=== PATIENT | female | born 1995 | race Two or more races ===

== ENCOUNTER 2025-03-06 19:41 | Emergency (ER) | payer MEDICAID, SELFPAY ==
[2025-03-06 19:41] VITALS: BMI 32.9
--- NOTE | 2025-03-06 19:44 | EKG_ITS ---
[facility] Test Date: 2025-03-06 Pat Name: SCOT PLATT Department: Room: - Gender: Female Welfare Adviser: : 1995 Requested By: Vijay Lentz Order Number: [id number] Reading MD: Vijay Lentz Measurements Intervals [place] Rate: 92 P: 41 MS: 151 QRS: 46 QRSD: 82 T: 11 QT: 328 QTc: 406 Interpretive Statements SINUS RHYTHM WITH SINUS ARRHYTHMIA Compared to ECG 06/25/2022 13:04:12 No significant changes /store/S0/[id number].pdf
[2025-03-06 20:42] VITALS: BP 111/78; PULSE 91; RESP 18; TEMP 36.9; O2SAT 97
--- NOTE | 2025-03-06 20:57 | PD.EDCHEST ---
ED Chest Pain RME/HPI General Chief Complaint: Chest Pain Stated Complaint: LEFT UPPER CHEST PAIN Time Seen by Provider: 03/06/25 20:57 Arrival date/time: 03/06/25 19:41 29F with history of anxiety/depression presents to ED with 2 days of L-sided chest/shoulder pain that radiates up to neck. Pain is worse with ROM. Patient denies URI symptoms and fall/trauma. Patient admits she's had increased stressors at home recently, including someone who she blocked and is trying to get back into her life. Limitations: no limitations Related Data Previous Rx's ?Medication ?Instructions ?Recorded amoxicillin 875 mg-potassium 1 tab PO BID #20 tabs 05/24/21 clavulanate 125 mg tablet (Augmentin) ibuprofen 600 mg tablet (IBU) 600 mg PO Q8H PRN pain #30 tabs 05/24/21 pantoprazole 40 mg tablet,delayed 40 mg PO QDAY #30 tabs 06/25/22 release (Protonix) Allergies Allergy/AdvReac Type Severity Reaction Status Date / Time No Known Allergies Allergy Verified 06/25/22 12:28 Review of Systems Review of Systems Systems Reviewed: All systems reviewed, normal except as documented Constitutional Constitutional: Reports system reviewed and no additional complaints, except as documented, Denies fever(s) and Denies headache(s) ENT Ears, Nose, Mouth, and Throat: Denies disequilibrium and Denies headache(s) Cardiovascular Cardiovascular: Reports system reviewed and no additional complaints, except as documented, Reports as per HPI, Reports chest pain and Denies dyspnea Respiratory Respiratory: Reports system reviewed and no additional complaints, except as documented, Denies cough and Denies dyspnea Gastrointestinal Gastrointestinal: Reports system reviewed and no additional complaints, except as documented, Denies abdominal pain, Denies nausea and Denies vomiting Musculoskeletal Musculoskeletal: Reports as per HPI and Reports arthralgias Neurologic Neurologic: Reports system reviewed and no additional complaints, except as documented, Denies confusion, Denies disequilibrium and Denies headache(s) Psychiatric Psychiatric: Denies confusion Past Medical History Past Medical History CARDIAC: Negative Congestive Heart Failure RESPIRATORY: Negative Chronic Obstructive Pulmonary Disease (COPD) GENITOURINARY: Negative Renal Disease ENDOCRINE: Negative Diabetes Mellitus Type 1 or Diabetes Mellitus Type 2 Social History SMOKING STATUS: Never smoker ED Exam General Limitations: Present no limitations General appearance: Present alert, in no apparent distress and anxious Head Head exam: Present atraumatic Eye Eye exam: Present normal appearance, PERRL and EOMI ENT ENT exam: Present normal exam, normal oropharynx and mucous membranes moist Neck Neck exam: Present normal inspection, full ROM and trachea midline Chest Chest inspection: Present normal inspection and symmetric chest wall rise Respiratory Respiratory exam: Present normal lung sounds bilaterally Cardiovascular Cardiovascular exam: Present regular rate, normal rhythm and normal heart sounds Abdominal Exam Abdominal exam: Present soft and normal bowel sounds Extremities Exam Extremities exam: Present full ROM Expanded Upper Extremity Exam Shoulder exam: Present full ROM (L) and tenderness Back Exam Back exam: Present normal inspection and full ROM Neurological Exam Neurological exam: Present alert, oriented X3 and CN II-XII intact Psychiatric Psychiatric exam: Present normal affect and normal mood Skin Skin exam: Present warm, dry, intact and normal color Course Quality Measures none Orders Category Date Time Status EKG (ED ONLY) *Do not use* NOW Care 03/06/25 19:44 Completed EKG (ED Only) Stat Exams 03/06/25 19:44 Draft Diazepam [Valium] Med 03/06/25 20:57 Discontinued 10 mg PO X1 ONE Vital Signs Vital signs: Vital Signs Temperature 98.5 F 03/06/25 20:42 Pulse Rate 91 03/06/25 20:42 Respiratory Rate 18 03/06/25 20:42 Blood Pressure 111/78 03/06/25 20:42 Pulse Oximetry (%) 97 03/06/25 20:42 Oxygen Delivery Method Room Air 03/06/25 20:42 O2 at 97% on RA and WNLs Chest Pain MDM Narrative MDM Narrative:: 29F with history of anxiety/depression presents to ED with 2 days of L-sided chest/shoulder pain that radiates up to neck. Pain is worse with ROM. Patient denies URI symptoms and fall/trauma. Patient admits she's had increased stressors at home recently, including someone who she blocked and is trying to get back into her life. Physical exam reveals mild L shoulder tenderness. ROM intact. Clear lungs. RRR. Normal. WOB. Patient is afebrile, alert, but anxious. EKG is NSR. Likely anxiety, but patient doesn't want to wait to see if she feels better so she eloped. Patient data External records reviewed:: [facility] previous records Clinical information provided by:: patient Social determinants that could affect healthcare access:: mental health Patient has the following chronic illnesses:: anxiety How is presenting disease/condition affected by chronic disease/condition?: exacerbated by Evaluation data The following diagnostics were reviewed and interpreted by me:: EKG tracing(s) Lab and/or radiology exams considered but not ordered:: ordered Interpretation Summary: above Medications / Prescriptions Medications or Prescriptions considered but not ordered:: ordered Medication administrations:: Medication Administration History Discontinued Medications Diazepam (Diazepam 5 Mg Tablet) 10 mg PO X1 ONE Stop: 03/06/25 20:58 Last Admin: 03/06/25 21:23 Dose: 10 mg Documented By: OA above Consultations Consultation(s) initiated? (list below): No Diagnosis Chest Pain Differential Diagnosis: fracture of rib, pneumothorax, stable angina, unstable angina pectoris, atypical chest pain, st elevation myocardial infarction, costochondritis, chest pain, biliary colic and other (anxiety) Most likely diagnosis given after review of the tests above:: anxiety Admission Indicated Admission indicated?: not indicated Admission Request Was there a request for admission?: No Disposition Plan Disposition Plan: other (specify) (eloped) Discharge Plan Plan Patient Disposition: Elopement Prescriptions/Referrals Prescriptions/Med Rec: No Action amoxicillin-pot clavulanate [Augmentin] 875-125 mg tablet 1 tab PO BID Qty: 20 0RF ibuprofen [IBU] 600 mg tablet 600 mg PO Q8H PRN (Reason: pain) Qty: 30 0RF pantoprazole [Protonix] 40 mg tablet,delayed release (DR/EC) 40 mg PO QDAY Qty: 30 0RF Problem List Clinical Impression: Anxiety Patient/Caregiver Discharge Instructions Print Language: Gambian LION/CAROLA Supervising Physician PA/ACCOUNTS RECEIVABLE ASSISTANT Supervising Physician: Dr. Valdez
[2025-03-06] MEDS: DIAZEPAM 5 MG TABLET 10 MG PO (21:23)
[2025-03-06 21:24] VITALS: BP 116/78; PULSE 68; RESP 18; O2SAT 100
== END 2025-03-06 21:27 | disposition left against medical advice (07) ==
LOC: SERX 21:27
PROVIDERS: Emergency Provider Emergency Medicine
DX: F41.9 Anxiety disorder, unspecified (principal); I49.8 Other specified cardiac arrhythmias; Z53.29 Procedure and treatment not carried out because of patient's decision for other reasons
CPT/HCPCS: 93005; 99281; A9270